=== PATIENT | female | born 1970 | race Caucasian/White ===

== ENCOUNTER → 2019-10-09 10:47 | Outpatient (CLI) | payer BC, SELFPAY ==
--- NOTE | 2019-10-09 10:51 | MM_ITS ---
PROCEDURE: MM DIG SCREENING MAMM BI W/CAD Digital Breast Tomosynthesis Included CLINICAL INDICATION: SCREENING There is a history of breast cancer patient's sister diagnosed before menopause. COMPARISON: DIG MAMMO BILAT SCREENING from 02/02/2012 DIG MAMMO BILAT SCREENING from 06/18/2014 DIG MAMMO BILAT SCREENING from 08/30/2015 outside films TECHNIQUE: Standard CC and MLO images and 3D Tomosynthesis was obtained. R2 CAD reviewed. FINDINGS: Scattered fibroglandular densities are seen throughout both breasts. There is a mole marker on each breast. There are couple of benign-appearing microcalcifications in each breast. The findings are fairly symmetrical bilaterally. Riaz images were reviewed. There is no new or suspicious lesion in either breast and no suspicious microcalcifications. IMPRESSION: Fibrofatty parenchyma with no suspicious lesions seen BI-RAD Category: 2 Benign Finding(s) FOLLOW-UP: 1YR 1 Year Follow-up (A letter has been sent to the patient regarding results of the study.) Dictated by: Dr. Jhonny Savage MD 10/13/2019 10:[address] Jhonny Savage MD in [place] 10/13/2019 10:20
== END ==
PROVIDERS: PCP Family Medicine; Visit Provider Family Medicine
DX: Z12.31 Encounter for screening mammogram for malignant neoplasm of breast (principal)
CPT/HCPCS: 77063; 77067

== ENCOUNTER → 2022-01-05 10:49 | Outpatient (CLI) | payer BC, SELFPAY | PROVIDERS: PCP Family Medicine; Visit Provider Internal Medicine | DX: Z01.812 Encounter for preprocedural laboratory examination (principal); Z20.822 Contact with and (suspected) exposure to COVID-19 | CPT/HCPCS: C9803; U0003; U0005 ==

== ENCOUNTER 2022-01-07 08:52 | Day surgery (SDC) | payer BC, SELFPAY ==
[2022-01-01 14:22] VITALS: BMI 33.2
[2022-01-07 09:13] VITALS: BP 128/94; PULSE 71; RESP 18; TEMP 36.7; O2SAT 98
[2022-01-07 09:58] VITALS: O2SAT 98
--- NOTE | 2022-01-07 10:10 | HMH.ANESCL ---
[facility] Anesthesia Checklist - Structural Data Admitted From: Home Planned Operative Procedure/s: colonoscopy Consent for Planned Operative Procedure(s) Verified: Yes - Airway Assessment C-Spine Mobility Assessed: Yes TMJ Mobility Assessed: Yes Dentition: Good Dentition - Neurological Assessment Level of Consciousness: Awake, Alert, Appropriate - Anesthesia Plan Anesthesia Risk discussed: Yes Anesthesia Plan: Verified ASA Class: II Anesthesia Type: MAC [facility] History I have reviewed the patient's past medical history: Yes Medical History: Denies:: Cancer, Diabetes Mellitus Type 1, Diabetes Mellitus Type 2, Internal Pacemaker, MRSA, Seizures *Have you ever received a pneumonia vaccine?: No *Have you received a flu vaccine this season?: No Anesthesia experience/problems:: none Other Surgeries: No: Pacemaker Amputation: No Fractures: Yes (rt wrist, rt ankle) - *Social History Last grade of school completed: High school graduate Smoking Status: Current every day smoker Tobacco Type: e-cigarettes # Packs/Day (cigarettes): 1 Alcohol Intake: never Substance Use Type: denies use *Occupational Status:: employed Housing: house Household Members: family *Travel in the last 8 weeks: None Family Hx:: Cancer, Diabetes
--- NOTE | 2022-01-07 10:40 | HMH.SCOPE ---
- Procedure: Date: 01/07/22 Patient Date of :: 1970 Procedure Performed:: Colonoscopy Indications:: The patient is a 51 year old who presents for screening colonoscopy. There is a history of intermittent blood per rectum. Performing Provider:: Kishore Thompson MD Referring Provider:: Jovan Zabala MD Sedation:: See RN Records Procedure:: After placing the patient in the left lateral decubitus position, the colonoscopy was gently inserted into the rectum and under direct visualization advanced to the cecum which was identified by transillumination in the right lower quadrant, identification of the ileocecal valve, appendiceal orifice, and cecal strap. Color, texture, mucosa, and anatomy of the colon were carefully examined with the scope. Findings:: Anal canal: normal Rectum: Internal hemorrhoids. Four sessile polyps ranging from 3-6 mm in size. Removed with snare polypectomy Sigmoid colon: Angulated sigmoid colon. Fair preparation Descending colon: normal without polyps or inflammatory changes Splenic flexure: normal Transverse colon: normal without polyps or inflammatory changes Hepatic flexure: Two sessile polyps 4 and 6 mm in size. Removed with snare cautery polypectomy. Ascending colon: Sessile polyp 4 mm in size. Removed with snare polypectomy (not retrieved) Cecum: normal Terminal ileum: not visualized Recommendations:: Await pathology results Recommend use of topical treatment for hemorrhoids with creams and suppositories as needed Repeat colonoscopy in 3 years Complications:: None Estimated blood obtained (mL): 0
[2022-01-07 10:41] VITALS: BP 114/68; PULSE 78; RESP 18; TEMP 36.3; O2SAT 93
[2022-01-07 10:51] VITALS: BP 115/75; PULSE 68; RESP 18; TEMP 36.3; O2SAT 97
[2022-01-07 11:01] VITALS: BP 114/73; PULSE 67; RESP 18; TEMP 36.3; O2SAT 97
[2022-01-07 11:11] VITALS: BP 131/80; PULSE 66; RESP 18; TEMP 36.3; O2SAT 98
== END 2022-01-07 11:11 | disposition home or self-care (01) ==
LOC: OUTP 08:54
PROVIDERS: PCP Family Medicine; Visit Provider Internal Medicine
PROC: 0DJD8ZZ Inspection of Lower Intestinal Tract, Via Natural or Artificial Opening Endoscopic (ICD-10-PCS; CPT 45378; principal; 2022-01-07 10:00)
DX: Z12.11 Encounter for screening for malignant neoplasm of colon (principal); K64.8 Other hemorrhoids; D12.3 Benign neoplasm of transverse colon; K92.1 Melena; Z72.0 Tobacco use; Z88.5 Allergy status to narcotic agent; Z79.899 Other long term (current) drug therapy
CPT/HCPCS: 45385; J2704

== ENCOUNTER → 2022-04-10 12:08 | Outpatient (CLI) | payer BC, SELFPAY ==
--- NOTE | 2022-04-10 12:25 | ECG_ITS ---
APPROVED REPORT Exam: Resting ECG HR:72 bpm ECG Measurements Heart Rate 72 AXES OH 128 P 60 QRSd 86 QRS 89 QT 379 T 42 QTc 403 Conclusion SINUS RHYTHM NORMAL ECG UNCONFIRMED REPORT Electronically signed by : Ferdinand Vargas MD 04/11/2022 16:27:05
--- NOTE | 2022-04-10 12:39 | XR_ITS ---
FINAL REPORT CLINICAL HISTORY: CHEST PAIN, non smoker, vapes FINDINGS: Two views of the chest were obtained. The heart size and pulmonary vascularity are within normal limits. The mediastinum is normal. There is mild bibasilar atelectasis or scarring. There is no pneumothorax. The bony thorax is intact. IMPRESSION: Mild bibasilar atelectasis or scarring. Reviewed, Interpreted and Dictated by Doyle Soler III, MD Transcribed by Tania Arciniega Authenticated and [facility]
[2022-04-10 13:58] LABS: Chloride 105 mmol/L (98-107); Potassium 3.7 mmoL/L (3.5-5.1); Sodium 140 mmol/L (136-145)
[2022-04-10 14:00] LABS: Blood Urea Nitrogen 10 mg/dl (7-17); Estimated Glomerular Filt Rate 88 ml/min (>60); GFR (African American) 106 ML/MIN (>60)
[2022-04-10 14:01] LABS: Alanine Aminotransferase 18 U/L (12-78); Albumin Level 4.2 g/dl (3.5-5.0); Albumin/Globulin Ratio 1.3 (1.1-1.8); Alkaline Phosphatase 101 U/L (38-126); Anion Gap 11.7 mEq/L (5-15); Aspartate Amino Transferase 33 U/L (14-36); Calcium 9.4 mg/dl (8.4-10.2); Carbon Dioxide 27 mmol/L (22.0-30.0); Chol/HDL Ratio 4.3 (1-3.5); Cholesterol 221 mg/dl (140-200); Creatine Kinase 32 U/L (30-135); Globulin 3.2 g/dL (1.3-3.2); Glucose 311 mg/dl (74-100); HDL Cholesterol 51 mg/dl (40-60); Total Protein,Serum 7.4 g/dl (6.3-8.2); Triglycerides 99 mg/dl (30-150); VLDL Cholesterol 20 mg/dL (0-40)
[2022-04-10 14:09] LABS: CKMB Relative Index 1.6 U/L (0-4.0); Creatine Kinase MB 0.5 ng/ml (0.0-2.03)
[2022-04-10 14:14] LABS: Bilirubin,Total < 0.1 mg/dl (0.2-1.3); Troponin I < 0.01 ng/ml (0.00-0.034)
[2022-04-15 19:38] LABS: Direct LDL Cholesterol 137 mg/dL (100-129)
== END ==
PROVIDERS: PCP Family Medicine; Visit Provider Family Medicine
DX: R07.9 Chest pain, unspecified (principal)
CPT/HCPCS: 36415; 71046; 80053; 80061; 82550; 82553; 84484; 93005

== ENCOUNTER → 2022-04-23 06:37 | Outpatient (CLI) | payer BC, SELFPAY ==
--- NOTE | 2022-04-23 | CA_ITS ---
APPROVED REPORT Exam: Pharmacologic Technologist: Laura Mckenzie, Ht: 5 ft 1 in Wt: 170 lbs BSA: 1.76 m2 HR: 75 bpm BP: 116/81 mmHg Medical History Medications: Metformin,,,,, Stress Test Details Test: LEXISCAN Reason for pharmacologic stress test: physical limitation. HR Resting HR: 71 bpm Max Heart Rate (APMHR): 168.845307 bpm Max HR Achieved: 118 bpm Target HR (85% APMHR): 142.026947 bpm % of APMHR: 70.24 Recovery HR: 89 bpm BP Resting BP: 116.0/81.0 mmHg Max BP: 131.0/81.0 mmHg Recovery BP: 116.0/80.0 mmHg ECG Resting ECG: NSR, rightward axis Clinical Exercise duration: 04:00 min Highest Stage Achieved: Stress ECG Conclusion Symptoms: Chest pressure, SOA, stomach discomfort, head discomfort. Arrhythmias/Ectopy: None. ST-T Changes: No significant changes. Conclusion: Unremarkable Lexiscan stress. Myoview images reported separately. Test Summary . . . . . Stop exercise at 04:00 . . . . . Electronically signed by : Cornel Day MD 04/24/2022 08:32:58
--- NOTE | 2022-04-23 06:40 | NM_ITS ---
APPROVED REPORT Exam: Nuclear Stress Test Indication: chest pain Patient Location: Outpatient Stress Tech: Laura Lawrence [place] Tech:WOODROW Tirado RT(R)(N) Ht: 5 ft 4 in Wt: 155 lbs Bra Size: 36b HR: 71 bpm BP: 116/81 mmHg BSA: 1.76 m2 TID: 1.14 BMI: 26.6 History: chest pain Procedure: Patient received a 0.4 mg of intravenous Lexiscan, resting heart rate 71 bpm, resting blood pressure 116/81 mmHg, with Lexiscan maximum heart rate achived was 118 bpm which is Less than 85 % of the maximum predicted heart rate and blood pressure was 131/81 mmHg. With Lexiscan, patient denied any complaint of chest pain. Electrocardiogram Resting electrocardiogram shows sinus rhythm rightward axis, with Lexiscan there is less than 1.[address] segment depression noted from the baseline EKG. The EKG portion of the Lexiscan is nondiagnostic. Cardiac Stress and Resting SPECT Images: Cardiac Stress and Resting SPECT images were obtained using technetium 99m Myoview 32.8 mCi stress and 10.57 mCi at rest. Gated SPECT analysis of segmental wall motion and calculation of the ejection fraction also done. Prone images were also obtained. Cardiac stress and rest SPECT may show mild fixed defect in the anterior wall with normal contractility in the gated SPECT is likely secondary to soft tissue attenuation, no reversible ischemia seen, compared to ejection fraction 53% with no regional wall motion abnormality, right ventricle is normal size and contractility. Conclusion: 1. The EKG portion of the Lexiscan is nondiagnostic. 2. No scintigraphic evidence of reversible ischemia seen, computer derived ejection fraction 53% with no regional wall motion abnormality, right ventricle is normal size and contractility. 3. Likely normal Lexiscan Myoview study. Electronically signed by : Cornel Day MD 04/24/2022 08:35:33
== END ==
PROVIDERS: PCP Family Medicine; Visit Provider Family Medicine
DX: R07.2 Precordial pain (principal)
CPT/HCPCS: 78452; 93017; A9502; J2785

== ENCOUNTER → 2022-06-10 13:11 | Outpatient (CLI) | payer BC, SELFPAY ==
--- NOTE | 2022-06-10 13:16 | MM_ITS ---
PROCEDURE INFORMATION: Exam: MG Bilateral Screening 3D Mammography Exam date and time: 06/10/2022 1:11 PM Age: 51 years old Clinical indication: Screening examination TECHNIQUE: Imaging protocol: Bilateral Screening tomosynthesis and 2D mammography including computer-aided detection (CAD) when performed. COMPARISON: 1. MG MM DIG SCREENING MAMM BI W/CAD 10/09/2019 10:56 AM 2. MG DIG MAMMO BILAT SCREENING 08/30/2015 8:29 AM FINDINGS: MAMMOGRAPHY: Breast composition: There are scattered areas of fibroglandular density. Mass: None. Architectural distortion: No new or suspicious architectural distortion. Calcifications: No new or suspicious calcifications are present Asymmetric density: No new or suspicious asymmetric density is present Skin thickening: None. Axillary adenopathy: None. IMPRESSION: No mammographic evidence of malignancy. Recommend annual screening mammography unless otherwise clinically indicated. ASSESSMENT: BI-RADS category 1: Negative
== END ==
PROVIDERS: PCP Family Medicine; Visit Provider Family Medicine
DX: Z12.31 Encounter for screening mammogram for malignant neoplasm of breast (principal)
CPT/HCPCS: 77063; 77067